=== PATIENT | male | born 1955 | race Caucasian/White ===

== ENCOUNTER 2020-02-16 14:25 | Emergency (ER) | payer MEDICARE ==
[~2020-02-16 14:25] MED LIST: ACYCLOVIR400 MG PO; AMITRIPTYLIN50 MG OR; ASPIRIN 81 LOW81 MG; ELAVIL50 MG OR; EQ OMEPRAZOLE20 MG; MELOXICAM7.5 MG PO; NORTRIPTYLIN25 MG PO; OXYCODONE HCL15 MG PO; OXYCONTIN; OXYCONTIN60 MG PO; PERCOCET1 TA2 OR; PERCOCET1 TA2 PO; PRILOSEC; RESTORIL15 MG PO; RESTORIL30 MG OR; SAW PALMETTO1 CAP PO; VIT B COMPLEX PO
[2020-02-16 16:04] LABS: HEMOGLOBIN 11.7 g/dl (14.0-18.0); IMMATURE GRANULOCYTES 1.2 % (0.0-5.0); MEAN CORPUSCULAR HGB 33.1 pG CALC (26.0-32.0); MEAN CORPUSCULAR HGB CONC 33.4 g/dL CAL (32.0-36.0); NEUT# 3.85 thou/uL (1.82-7.42); RED BLOOD COUNT 3.54 mill/uL (4.70-6.10); RED CELL DISTRI WIDTH 13.3 % (11.5-15.5)
[2020-02-16 16:05] LABS: MEAN CELL VOLUME 98.9 fL CALC (80.0-100.0)
[2020-02-16 16:23] LABS: ALKALINE PHOSPHATASE 81 u/l (38-126); ANION GAP 11 (6-22 (CALC)); BUN 7 mg/dL (8-23); BUN/CREATININE RATIO 10 (12-20 (CALC)); CARBON DIOXIDE 30 mmol/l (22-30); CHLORIDE 99 mmol/l (95-108); CREATININE 0.7 mg/dL (0.7-1.3); GFR > 60 ML/MIN (>=60 (CALC)); GFR FOR AFR.AMER. > 60 ML/MIN (>=60 (CALC)); SGOT/AST 21 u/l (19-48); SODIUM 136 mmol/l (137-146)
[2020-02-16 16:26] LABS: ALBUMIN 3.7 g/dL (3.2-5.0); BILIRUBIN, TOTAL 0.3 mg/dL (0.0-1.4); TOTAL PROTEIN 6.4 g/dL (6.3-8.2)
[2020-02-16] MEDS ORDERED: OXYCONTIN40 MG PO (17:47)
[2020-02-16] MEDS ORDERED: PRILOSEC20 MG/CAP PO (17:48)
[2020-02-16] MEDS ORDERED: OXYCODONE15 MG PO (17:48)
[2020-02-16 18:18] LABS: URINE BILIRUBIN - DIPSTICK NEGATIVE (NEGATIVE); URINE BLOOD DIPSTICK NEGATIVE (NEGATIVE); URINE COLOR YELLOW; URINE GLUCOSE - DIPSTICK NEGATIVE (NEGATIVE); URINE KETONE NEGATIVE (NEGATIVE); URINE LEUK ESTERASE NEGATIVE (NEGATIVE); URINE NITRITE - DIPSTICK NEGATIVE (Negative); URINE PROTEIN - DIPSTICK NEGATIVE (NEG-TRACE); URINE SPECIFIC GRAVITY <=1.005; URINE UROBILINOGEN - DIPSTICK 0.2 E.U./dL (0.2)
[2020-02-16 19:05] VITALS: BP 131/63
[2020-02-16] MEDS ORDERED: NAPROXEN500 MG PO ×2 (19:27)
[2020-03-11] MEDS ORDERED: EQ ASPIRIN ADUL81 MG PO (12:00)
[2020-03-11] MEDS ORDERED: VITAMIN B-12500 MCG PO (12:01)
[2020-03-11] MEDS ORDERED: FISH OIL1000 MG PO (12:01)
[2020-03-11] MEDS ORDERED: FERR SULFATE325 MG PO (12:01)
[2020-03-11] MEDS ORDERED: MULTI VIT PO (12:02)
== END 2020-02-16 19:40 | disposition home or self-care (01) ==
LOC: ED 14:25
PROVIDERS: Student in an Organized Health Care Education/Training Program
DX: K40.90 Unilateral inguinal hernia, without obstruction or gangrene, not specified as recurrent (principal); F17.210 Nicotine dependence, cigarettes, uncomplicated
CPT/HCPCS: Q9967

== ENCOUNTER 2020-04-03 06:15 | Day surgery (SDC) | payer MEDICARE ==
[~2020-04-03] VITALS: Ht 177.8 cm; Wt 68.0 kg
[~2020-04-03 06:15] MED LIST changes: +EQ ASPIRIN ADUL81 MG PO; +FERR SULFATE325 MG PO; +FISH OIL1000 MG PO; +MULTI VIT PO; +NAPROXEN500 MG PO; +OXYCODONE15 MG PO; +OXYCONTIN40 MG PO; +PRILOSEC20 MG/CAP PO; +VITAMIN B-12500 MCG PO
[2020-04-03 11:57] VITALS: BP 120/58
== END 2020-04-03 12:20 | disposition home or self-care (01) ==
LOC: ORM 06:15
PROVIDERS: ATTEND Surgery
PROC: 0YUA4JZ Supplement Bilateral Inguinal Region with Synthetic Substitute, Percutaneous Endoscopic Approach (ICD-10-PCS; principal; 2020-04-03)
PROC: 0VBF4ZZ Excision of Right Spermatic Cord, Percutaneous Endoscopic Approach (ICD-10-PCS; 2020-04-03)
DX: K40.20 Bilateral inguinal hernia, without obstruction or gangrene, not specified as recurrent (principal); D17.6 Benign lipomatous neoplasm of spermatic cord; C85.90 Non-Hodgkin lymphoma, unspecified, unspecified site; F17.210 Nicotine dependence, cigarettes, uncomplicated; Z11.59 Encounter for screening for other viral diseases
CPT/HCPCS: C1781; J0131; J1100; J2710

== ENCOUNTER 2020-04-21 12:46 | Emergency (ER) | payer MEDICARE, MEDICAID ==
[~2020-04-21] VITALS: Ht 177.8 cm; Wt 65.0 kg
[2020-04-21 14:15] LABS: HEMATOCRIT 34.8 % (39.0-50.0); HEMOGLOBIN 11.7 g/dl (14.0-18.0); IMMATURE GRANULOCYTES 5.6 % (0.0-5.0); MEAN CORPUSCULAR HGB 31.9 pG CALC (26.0-32.0); MEAN CORPUSCULAR HGB CONC 33.6 g/dL CAL (32.0-36.0); NEUT# 2.47 thou/uL (1.82-7.42); RED BLOOD COUNT 3.67 mill/uL (4.70-6.10); RED CELL DISTRI WIDTH 13.4 % (11.5-15.5)
[2020-04-21 14:23] LABS: MEAN CELL VOLUME 94.8 fL CALC (80.0-100.0)
[2020-04-21 14:31] LABS: ALKALINE PHOSPHATASE 78 u/l (38-126); BUN 17 mg/dL (8-23); BUN/CREATININE RATIO 22 (12-20 (CALC)); CHLORIDE 98 mmol/l (95-108); CREATININE 0.7 mg/dL (0.7-1.3); GFR > 60 ML/MIN (>=60 (CALC)); GFR FOR AFR.AMER. > 60 ML/MIN (>=60 (CALC)); SODIUM 131 mmol/l (137-146); TOTAL PROTEIN 5.8 g/dL (6.3-8.2)
[2020-04-21 14:33] LABS: D-DIMER 1.46 mg/L (0.19-0.60)
[2020-04-21 14:39] LABS: ALBUMIN 3.2 g/dL (3.2-5.0); ANION GAP 11 (6-22 (CALC)); BILIRUBIN, TOTAL 0.6 mg/dL (0.0-1.4); CARBON DIOXIDE 26 mmol/l (22-30); SGOT/AST 94 u/l (19-48)
[2020-04-21 14:41] LABS: MYOGLOBIN 142 ng/mL (0 - 121)
[2020-04-21 14:42] LABS: ACT PARTIAL THROMBO TIME 35.1 SECONDS (20.0-32.5); PROTHROMBIN TIME 13.3 SECONDS (9.0-12.5)
[2020-04-21 14:51] LABS: INTERNATIONAL NORMALIZED RATIO 1.4 RATIO (0.7-1.3)
[2020-04-21] MEDS ORDERED: SYMBICORT1 AE1 IN ×2 (16:50)
[2020-04-21] MEDS ORDERED: DOXYCYCL HYC100 MG PO ×2 (16:50)
[2020-04-21 16:53] VITALS: BP 124/77
== END 2020-04-21 16:57 | disposition left against medical advice (07) ==
LOC: ED 12:46
PROVIDERS: Family Medicine
DX: J18.9 Pneumonia, unspecified organism (principal); J44.1 Chronic obstructive pulmonary disease with (acute) exacerbation; J44.0 Chronic obstructive pulmonary disease with (acute) lower respiratory infection; R41.0 Disorientation, unspecified; C85.90 Non-Hodgkin lymphoma, unspecified, unspecified site; F17.200 Nicotine dependence, unspecified, uncomplicated; Z91.19 Patient's noncompliance with other medical treatment and regimen; Z20.828 Contact with and (suspected) exposure to other viral communicable diseases
CPT/HCPCS: Q9967

== ENCOUNTER 2020-05-11 16:33 | Inpatient (IN) | payer MEDICARE, MEDICAID ==
[~2020-05-11] VITALS: Ht 177.8 cm; Wt 53.3 kg
[~2020-05-11 16:33] MED LIST changes: +DOXYCYCL HYC100 MG PO; +SYMBICORT1 AE1 IN
--- NOTE | 2020-05-11 16:33 | NUR ---
PATEINT TO ROOM VIA EMS AND PHYSICIAN AT BEDSIDE FOR EVAL
[2020-05-11 17:08] LABS: HEMATOCRIT 37.7 % (39.0-50.0); HEMOGLOBIN 12.3 g/dl (14.0-18.0); MEAN CELL VOLUME 92.4 fL CALC (80.0-100.0); MEAN CORPUSCULAR HGB 30.1 pG CALC (26.0-32.0); MEAN CORPUSCULAR HGB CONC 32.6 g/dL CAL (32.0-36.0); NEUT# 3.83 thou/uL (1.82-7.42); RED BLOOD COUNT 4.08 mill/uL (4.70-6.10); RED CELL DISTRI WIDTH 14.6 % (11.5-15.5)
[2020-05-11] MEDS ORDERED: OXYCODONE15 MG PO (17:15)
[2020-05-11 17:20] LABS: ALBUMIN 2.9 g/dL (3.2-5.0); ALKALINE PHOSPHATASE 89 u/l (38-126); BUN 17 mg/dL (8-23); BUN/CREATININE RATIO 27 (12-20 (CALC)); CHLORIDE 97 mmol/l (95-108); CREATININE 0.6 mg/dL (0.7-1.3); GFR > 60 ML/MIN (>=60 (CALC)); GFR FOR AFR.AMER. > 60 ML/MIN (>=60 (CALC)); SGOT/AST 44 u/l (19-48); SODIUM 134 mmol/l (137-146); TOTAL PROTEIN 5.7 g/dL (6.3-8.2)
--- NOTE | 2020-05-11 17:20 | NUR ---
PT ARRIVES BY EMS AND PRESENTS WITH SOB THAT HAS PROGRESSED IN THE LAST FEW DAYS. HE STATES HAVING INCREASED WEAKNESS. SPO2 81% UPON ARRIVAL WHEN REMOVED FROM O2. PT SKIN APPEARS PALE. MUCUS MEMBRANES DRY. BEEFY RED SMOOTH TONGUE NOTED AND MD NOTIFIED. TENTING OF SKIN. LUNGS DEMINISHED IN THE LOWER LOBES BILATERALLY. AOX4. NIH 0. WILL CONTINUE TO MONITOR. CALL LIGHT WITHIN REACH. PT PLACED ON 4 L OF O2.
[2020-05-11 17:21] LABS: IMMATURE GRANULOCYTES 11.1 % (0.0-5.0)
[2020-05-11 17:22] LABS: ANION GAP 8 (6-22 (CALC)); BILIRUBIN, TOTAL 0.9 mg/dL (0.0-1.4); CARBON DIOXIDE 32 mmol/l (22-30); POTASSIUM 3.1 mmol/l (3.5-5.1)
[2020-05-11 17:32] LABS: MYOGLOBIN 140 ng/mL (0 - 121)
--- NOTE | 2020-05-11 17:56 | NUR ---
ASKED PT IF HE IS ABLE TO PROVIDE URINE SAMPLE. PT DECLINED. URINAL PLACED AT BEDSIDE ALONG WITH CALL LIGHT MD IN ROOM SPEAKING TO PT ABOUT PENDING ADMISSION AND PLAN OF CARE
--- NOTE | 2020-05-11 18:45 | NUR ---
ATTEMPTED TO CALL REPORT AND I WAS TOLD TO WAIT UNTIL NEXT SHIFT NURSE ARRIVES TO GIVE REPORT
--- NOTE | 2020-05-11 19:00 | NUR ---
I ENTERED ROOM I SAW THAT PT HAD DISCONNECTED HIMSELF FROM MONITORING EQUIPMENT, AND HAD GOTTEN OFF OF THE STRETCHER. PT WAS WITNESSED URINATING IN THE SINK. WHEN HE FINISHED, I ASSISTED HIM BACK IN BED AND TOLD HIM THAT HIS URINAL WAS WITHIN REACH ALONG WITH CALL LIGHT. PT SEEMED CONFUSED. NOTIFED. PT RECONNECTED.
--- NOTE | 2020-05-11 19:15 | NUR ---
TELEPHONE REPORT RECEIVED FROM Ted HAQUE IN ED.
--- NOTE | 2020-05-11 19:29 | NUR ---
GAVE REPORT TO MARK
--- NOTE | 2020-05-11 19:38 | NUR ---
PT ARRIVES TO UNIT VIA STRETCHER, ACCOMPANIED Ted HAQUE RN. ADMITTED TO ROOM 282.
--- NOTE | 2020-05-11 19:40 | NUR ---
PT TRANSFERED TO [facility] STABLE AND IN NO DISTRESS. CARE ASSUMED TO MARK Admission Note Report Given to: MARK Transported by: Wheelchair X Stretcher Transported with: X Nurse Transporter X Patent IV X O2 X Auto Parker Location: ICU X MS2
[2020-05-11 19:45] VITALS: BP 114/84
--- NOTE | 2020-05-11 19:47 | NUR ---
LACTATE LEVEL 2.6mmol/L, RESULT CALLED BY Batool WALTER MLS.
--- NOTE | 2020-05-11 20:08 | NUR ---
LACTATE LEVEL REPORTED TO DR. MARSHALL, ORDER TO BOLUS ADDITIONAL 1L NS AND REPEAT LACTIC ACID RECEIVED.
--- NOTE | 2020-05-11 20:15 | NUR ---
ASMISSION ASSESMENT COMPLETE. PT LAYING IN BED. RESPIRATIONS REGULAR AND UNLABORED. NO APPARENT DISTRESS. SEE E-MAR FOR ADMINISTRATION OF SCHEDULED AND PRN MEDICATION(S) AND INITIATION OF 1 LITER NS BOLUS. PLAN OF CARE REVIEWED, PT VERBALIZES UNDERSTANDING AND DENIES QUESTIONS. PT IS ABLE TO MAKE NEEDS KNOWN, DENIES NEEDS AT THIS TIME. CALL DANIEL WITHIN REACH, AGREES TO CALL PRN.
--- NOTE | 2020-05-11 23:42 | NUR ---
REPEAT LACTIC ACID DRAWN. PT URINATED ON BED AND FLOOR. STATES "I COULDN'T MAKE IT TO THE BATHROOM". URINAL AT BEDSIDE, WITHIN REACH. PT ASSISTED TO BATHE AND LINENS CHANGED BY Isi MARCIAL CNA.
[2020-05-12] VITALS: BP 114/73
--- NOTE | 2020-05-12 00:20 | NUR ---
REPEAT LACTIC ACID 0.9mmol/L, WNL, NO FURTHER INTERVENTION NEEDED AT THIS TIME.
--- NOTE | 2020-05-12 00:40 | NUR ---
PT LAYING IN BED, APPEARS TO BE SLEEPING COMFORTABLY, NO APPARENT DISTRESS, RESPIRATIONS REGULAR AND UNLABORED. CALL DANIEL REMAINS WITHIN REACH.
[2020-05-12 04:00] VITALS: BP 110/67
--- NOTE | 2020-05-12 07:40 | NUR ---
RECIEVED REPORT FROM MORIAH FLORES. PT CALLS FOR ASSIST WITH CHANGING. UPON ENERTING ROOM. PT WAS FOUND SAOILED. PT STATED "I DIDNT MAKE IT AND PEED ON MYSELF."WAQAS SIMPSON ASSISTING PT WITH SHOWER.ALL SAEFTY PRECAUTIONS ARE IN PLACE WITH CALL LIGHT IN REACH. WILL CONTINUE TO MONITOR
--- NOTE | 2020-05-12 07:51 | NUR ---
PT note Patient is screened for PT intervention and he has no needs at this time
--- NOTE | 2020-05-12 08:10 | NUR ---
PT RESTING IN SEMI FOWLERS POSITION UPON ENTERING ROOM.INTRODUCED SELF TO PT AND DISCUSSED POC. ASSESSMENT AND VITALS COMPLETED. RESPIRATIONS ARE EVEN AND UNLABORED ON 4L NC SATING 93%. LUNG SOUNDS ARE DIMINISHED, PT DENIES ANY SOB. HEART RHYTHM IS NORMAL WITH TELE IN PLACE. BOWEL SOUNDS ARE ACTIVE IN ALL QUADRANTS WITH NO TENDERNESS, LAST REPORTED BM 05/11/20. RADIAL AND PEDAL PULSES ARE STRONG WITH NORMAL CAPILLARY REFILL. #20 RFA EMS SITE FLUSHED, SITE APPEARS HEALTHY AND PATENT. #20 IN LAC RUNNING NS PER ORDER, SITE APPEARS HEALTHY AND PATENT.PT COMPLAINS OF 6/10 PAIN IN BACK AND NECK, PAIN MEDICATION TO BE ADMINISTERED. SKIN IS COOL AND DRY WITH NO BREAKDOWN. PT ORIENTED TO ROOM AND CALL LIGHT. RE-EDUCATED PT CULINARY WORKER LIGHT AND ENCOURAGED PT TO CALL FOR ASSISTANCE WITH URINAL FOR NEEDED URINE SPECIMEN. PT VERBAILZED UNDERSTANDING. ALL SAFETY PRECAUTIONS ARE IN PLACE WITH CALL LIGHT IN REACH. WILL CONTINUE TO MONITOR.
[2020-05-12 08:12] VITALS: BP 142/74
[2020-05-12 09:18] LABS: HEMATOCRIT 37.3 % (39.0-50.0); HEMOGLOBIN 12.3 g/dl (14.0-18.0); MEAN CELL VOLUME 92.6 fL CALC (80.0-100.0); MEAN CORPUSCULAR HGB 30.5 pG CALC (26.0-32.0); NEUT# 2.96 thou/uL (1.82-7.42); RED BLOOD COUNT 4.03 mill/uL (4.70-6.10); RED CELL DISTRI WIDTH 14.7 % (11.5-15.5)
[2020-05-12 09:24] LABS: IMMATURE GRANULOCYTES 13.5 % (0.0-5.0)
--- NOTE | 2020-05-12 09:57 | NUR ---
TYLENOL ADMINISTERED TO ASSIST WITH NECK AND BACK PAIN RESULTING IN 6/10. RESPIRATIONS ARE EVEN AND UNLABORED WITH NO SIGNS OF DISTRESS. ALL SAFETY PRECAUTIONS ARE IN PLACE WITH CALL LIGHT IN REACH. WILL CONTINUE TO MONITOR
[2020-05-12 10:05] LABS: C-REACTIVE PROTEIN 7.9 mg/dL (0-0.9)
[2020-05-12 10:12] LABS: ALBUMIN 2.4 g/dL (3.2-5.0); ALKALINE PHOSPHATASE 79 u/l (38-126); ANION GAP 10 (6-22 (CALC)); BILIRUBIN, TOTAL 0.7 mg/dL (0.0-1.4); BUN 12 mg/dL (8-23); BUN/CREATININE RATIO 23 (12-20 (CALC)); CARBON DIOXIDE 26 mmol/l (22-30); CHLORIDE 103 mmol/l (95-108); CREATININE 0.6 mg/dL (0.7-1.3); GFR > 60 ML/MIN (>=60 (CALC)); GFR FOR AFR.AMER. > 60 ML/MIN (>=60 (CALC)); MAGNESIUM 1.7 mg/dL (1.6-2.3); POTASSIUM 2.7 mmol/l (3.5-5.1); SGOT/AST 39 u/l (19-48); SODIUM 136 mmol/l (137-146); TOTAL PROTEIN 4.8 g/dL (6.3-8.2)
[2020-05-12 11:09] VITALS: BP 115/75
--- NOTE | 2020-05-12 11:40 | NUR ---
ATTEMPTED TO RETURN PHONE CALL FROM RADIOLOGY, NO ANSWER.
--- NOTE | 2020-05-12 12:03 | NUR ---
REASSESSMENT OF PAIN AT THIS TIME. RESULTING IN 12/20. PT STATES THAT TYLENOL IS HELPING. RESPRIATIONS ARE EVEN AND UNLABORED. IV FLUIDS RUNNING PER ORDER.PT DENIES OF ANY OTHER DISCOMFORTS OR NEEDS. ALL SAFETY PRECAUTIONS ARE IN PLACE. WILL CONTINUE TO MONITOR
[2020-05-12 12:07] LABS: URINE BILIRUBIN - DIPSTICK NEGATIVE (NEGATIVE); URINE BLOOD DIPSTICK NEGATIVE (NEGATIVE); URINE CLARITY CLEAR; URINE COLOR YELLOW; URINE GLUCOSE - DIPSTICK NEGATIVE (NEGATIVE); URINE KETONE NEGATIVE (NEGATIVE); URINE LEUK ESTERASE NEGATIVE (Negative); URINE NITRITE - DIPSTICK NEGATIVE (Negative); URINE PH 6.5 (4.5-8.0); URINE PROTEIN - DIPSTICK NEGATIVE (NEG-TRACE); URINE UROBILINOGEN - DIPSTICK 0.2 E.U./dL (0.2)
--- NOTE | 2020-05-12 13:50 | NUR ---
PT TRANSPORTED TO RADIOLOGY FOR CHEST X RAY VIA WHEELCHAIR IN STABEL CONDITION ACCOMPAINED BY WAQAS VARELA.
--- NOTE | 2020-05-12 13:58 | NUR ---
PT ARRIVED BACK TO [facility] ROOM 282 IN STABLE CONDITION VIA WHEELCHAIR ACCOMPAINED BY WAQAS VARELA.
[2020-05-12] MEDS ORDERED: SYMBICORT1 AE1 IN (14:18)
[2020-05-12 15:31] VITALS: BP 121/80
[2020-05-12] MEDS ORDERED: OXYCODONE HCL E40 MG PO (15:54)
--- NOTE | 2020-05-12 16:04 | NUR ---
PT RESTING IN SEMI FOWLERS POSITION UPON ENTERING ROOM. RESPIRATIONS ARE EVEN AND UNLABORED ON 3L NC. NO SIGNS OF DISTRESS NOTED. PT DENIES ANY PAIN OR DISCOMFORTS . IV FLUIDS RUNNING PER ORDER. ALL SAFETY PRECAUTIONS ARE IN PLACE WITH CALL LIGHT IN REACH. WILL CONTINUE TO MONITOR.
--- NOTE | 2020-05-12 19:05 | NUR ---
REPORT FROM LIT GARDNER. PT NOTED SITTING UP IN BED. NO APPARENT DISTRESS NOTED. ALERT AND ORIENTED. PT DENIES ANY PAIN OR DISCOMFORT AT THIS TIME. 02 @ 3L/M VIA NC. IV FLUIDS INFUSING WITHOUT DIFFICULTY. IV SITE APPEARS HEALTHY. MERCHANDISE FLOW TEAM LEADER IN PLACE. DISCUSSED POC AND SAFETY PRECAUTIONS. PT VERBALIZED UNDERSTANDING. NO CURRENT WANTS OR NEEDS. CALL LIGHT WITHIN REACH. WILL CONTINUE TO MONITOR.
[2020-05-12 20:05] VITALS: BP 133/75
--- NOTE | 2020-05-12 21:40 | NUR ---
PT MEDICATED ORDERED. PT C/O GENERALIZED PAIN 10/10 AT THIS TIME. ENCOURAGED REPOSITIONING IN BED, PT DID SO AT THIS TIME WITHOUT ASSISTANCE. PT DENIES ANY OTHER CURRENT WANTS OR NEEDS. CALL LIGHT WITHIN REACH. WILL CONTINUE TO MONITOR.
[2020-05-13] VITALS (7 sets, daily range): BP systolic 119–131; BP diastolic 70–79
--- NOTE | 2020-05-13 01:53 | NUR ---
PT RESTING IN BED. NO APPARENT DISTRESS NOTED. RESPIRATIONS EVEN AND UNLABORED. CALL LIGHT WITHIN REACH. WILL CONTINUE TO MONITOR.
[2020-05-13 05:14] LABS: HEMATOCRIT 33.5 % (39.0-50.0); HEMOGLOBIN 10.9 g/dl (14.0-18.0); MEAN CELL VOLUME 93.3 fL CALC (80.0-100.0); MEAN CORPUSCULAR HGB 30.4 pG CALC (26.0-32.0); MEAN CORPUSCULAR HGB CONC 32.5 g/dL CAL (32.0-36.0); NEUT# 4.89 thou/uL (1.82-7.42); RED BLOOD COUNT 3.59 mill/uL (4.70-6.10); RED CELL DISTRI WIDTH 14.7 % (11.5-15.5)
[2020-05-13 05:32] LABS: ALBUMIN 2.3 g/dL (3.2-5.0); ALKALINE PHOSPHATASE 61 u/l (38-126); ANION GAP 6 (6-22 (CALC)); BILIRUBIN, TOTAL 0.6 mg/dL (0.0-1.4); BUN 15 mg/dL (8-23); BUN/CREATININE RATIO 26 (12-20 (CALC)); CARBON DIOXIDE 28 mmol/l (22-30); CHLORIDE 104 mmol/l (95-108); CREATININE 0.6 mg/dL (0.7-1.3); GFR > 60 ML/MIN (>=60 (CALC)); GFR FOR AFR.AMER. > 60 ML/MIN (>=60 (CALC)); MAGNESIUM 1.9 mg/dL (1.6-2.3); SGOT/AST 36 u/l (19-48); SODIUM 134 mmol/l (137-146); TOTAL PROTEIN 4.5 g/dL (6.3-8.2)
[2020-05-13 05:34] LABS: POTASSIUM 3.9 mmol/l (3.5-5.1)
--- NOTE | 2020-05-13 05:58 | NUR ---
PT RESTING IN BED WATCHING TV. NO APPARENT DISTRESS NOTED. RESPIRATIONS EVEN AND UNLABORED. PT ASKING IF PHYSICIAN WAS GOING TO SEE HIM TODAY AND WANTING TO KNOW WHEN HE COULD GET OUT OF HERE. DISCUSSED POC AND NEED FOR IV ABT. PT REFUSING EDUCATION PROVIDED. PT PLEASANT AT THIS TIME, NO AGGITATION NOTED. PT DENIES ANY OTHER WANTS OR NEEDS. CALL LIGHT WITHIN REACH. WILL CONTINUE TO MONITOR.
--- NOTE | 2020-05-13 07:00 | NUR ---
REPORT RECEIVED FROM KENDRA REDDY.
--- NOTE | 2020-05-13 08:35 | NUR ---
AT BEDSIDE DISCUSSING POC.
--- NOTE | 2020-05-13 09:00 | NUR ---
PT RESTING IN SEMI FOWLERS POSITION,A&O X3;VS OBTAINED AND ASSESSMENT COMPLETED;PT REPORTS NECK PAIN RATING 6/10 ON THE PAIN SCALE,PAIN SCALE AND REPORTING EDUCATED;PT MEDICATED WITH SCHEDULED OXYCODONE 40MG PO;RESPIRATIONS EVEN AND UNLABORED ON O2 @ 2L VIA NC;ABDOMEN SOFT ON PALPATION AND ACTIVE IN ALL 4 QUADRANTS;STRONG PEDAL PULSES;SKIN INTACT;TELE MONITORING IN PLACE;#20G TO LAC INFUSING NS @ 20ML/HR,SITE APPEARS HEALTHY;PT REMAINS IN AIR/CONTACT PRECAUTIONS DUE TO PENDING COVID 19 RESULTS;PT DENIES ANY ADDITIONAL NEEDS AT THIS TIME AND IS ENCOURAGED TO CALL FOR ASSISTANCE IF NEEDED;CALL LIGHT IN REACH;WILL CONTINUE TO MONITOR
[2020-05-13] MEDS ORDERED: LEVAQUIN750 MG PO (10:12)
[2020-05-13] MEDS ORDERED: PREDNISONE10 MG PO (10:18)
[2020-05-13] MEDS ORDERED: PROAIR HFA108 MCG/AC IN (10:20)
--- NOTE | 2020-05-13 10:20 | NUR ---
OXYGEN QUALIFICATION TEST OBTAINED AT THIS TIME;WITHOUT OXYGEN PRIOR TO AMBULATION PT O2 SATS 85%, O2 RE-APPLIED @ 3L VIA NC AND O2 SATS EVELIN WITH AMBULATION TO 91%, RESTING 02 SATS ON O2 @ 3L VIA NC 92%;PT RE-POSITIONED INTO BED;TELE MONITORING IN PLACE AND IV SITE PATENT;PT VERBALIZES UNDERSTANDING ON QUALIFICATION FOR HOME OXYGEN, ALYSSA MCDERMOTTRP AND CASE MANAGEMENT NOTIFIED;PT DENIES ANY ADDITIONAL NEEDS;ENCOURAGED TO CALL FOR ASSISTANCE IF NEEDED;CALL LIGHT IN REACH;WILL CONTINUE TO MONITOR
[2020-05-13] MEDS ORDERED: ZITHROMAX250 MG PO (11:30)
--- NOTE | 2020-05-13 12:00 | NUR ---
PT RESTING IN SEMI FOWLERS POSITION EATING LUNCH;RESPIRATIONS SHALLOW ON O2 @ 3L VIA NC, O2 SATS @ 91%;PT DENIES ANY CURRENT PAIN OR NEEDS;TELE MONITORING IN PLACE;IV SITE PATENT AND IV ABX STARTED AT THIS TIME;PT VERBALIZES UNDERSTANDING ON COVID19 DX AND HOW MD WOULD LIKE HIM TO SPEND AN ADDITIONAL NIGHT AT [facility] FOR FURTHER ABX AND CARE, PT REPORTS THAT HE WOULD LIKE TO GO HOME AND WOULD SIGN AMA;PT EDUCATED ON ALL RISKS IN REGARDS TO SIGNING AMA INCLUDING AND VERBALIZES UNDERSTANDING;PENNIE (DAUGHTER) CALLED AND UPDATED ON POC WITH PT PERMISSION (PASSCODE WAS PROVIDED BY DAUGHTER) SINCE PENNIE WILL BE CAREGIVER AT HOME AND PT RIDE HOME AT TIME OF DISCHARGE;PT DENIES ANY ADDITIONAL NEEDS AT THIS TIME;ENCOURAGED TO CALL FOR ASSISTANCE IF NEEDED;CALL LIGHT IN REACH;WILL CONTINUE TO MONITOR
--- NOTE | 2020-05-13 15:20 | NUR ---
PT RESTING IN SEMI FOWLERS POSITION;RESPIRATIONS SHALLOW ON O2 @ 3L VIA NC, O2 SATS @ 85% ON 3L;PT PLACED IN PRONE POSITION AND O2 INCREASED TO 4.5L VIA NC;O2 SATS CURRENTLY 90% ON 4.5L;PT DENIES ANY CURRENT PAIN OR DISCOMFORTS;TELE MONITORING IN PLACE;IV SITE REMAINS PATENT INFUSING NS PER ORDER;PT DENIES ANY ADDITIONAL NEEDS AT THIS TIME;ALYSSA ANRP NOTIFIED OF INCREASE IN OXYGEN,NO NEW ORDERS RECEIVED;ENCOURAGED PT TO CALL FOR ASSISTANCE IF NEEDED;CALL LIGHT IN REACH;WILL CONTINUE TO MONITOR
--- NOTE | 2020-05-13 20:08 | NUR ---
PT RESTING IN BED ALERT AND ORIENTED TO PERSON AND PLACE. RESPIRATIONS SHALLOW ON O2 @ 4.5L, LUNGS SOUND DIMINISHED, O2 SAT DROPPING INTO THE 80S. MD TO BE NOTIFIED.
--- NOTE | 2020-05-13 20:38 | NUR ---
DR. SEGURA NOTIFIED OF PT O2 SATS, PT TO BE TRANSFERED OVER TO ICU. MARK RN CALL FOR A BED, PT GOING OT BED 8.
--- NOTE | 2020-05-13 20:59 | NUR ---
PT TRANSFERED TO ICU
--- NOTE | 2020-05-13 21:03 | NUR ---
PT ARRIVES TO UNIT VIA BED, ACCOMPANIED BY Marta AGUILAR RN, PT TRANSFERRED INTO ICU #8. SPO2 95% 0N 02 @ 6L/NC. PT SWITCHED TO HIGH FLOW NC @ 6L/MIN HUMIDIFIED.
--- NOTE | 2020-05-13 21:40 | NUR ---
PHYSICAL ASSESMENT COMPLETE. PT SITTING UP IN BED, WATCHING TV. RESPIRATIONS REGULAR AND UNLABORED. NO APPARENT DISTRESS. SEE E-MAR FOR ADMINISTRATION OF SCHEDULED AND PRN MEDICATION(S). PLAN OF CARE REVIEWED, PT VERBALIZES UNDERSTANDING AND DENIES QUESTIONS. PT IS ABLE TO MAKE NEEDS KNOWN, DENIES NEEDS AT THIS TIME. CALL DANIEL WITHIN REACH, AGREES TO CALL PRN.
--- NOTE | 2020-05-13 23:04 | NUR ---
PT ASSISTED UP TO BSC BY Isi MARCIAL CNA PER HIS REQUEST. PT REPORTS HE NEEDS TO HAVE A BM. SPO2 DOWN TO 86% WITH EXERTION. PT DID NOT HAVE BM. PT ASSITED BACK TO BED BY Isi MACRIAL CNA. PT TOOK SEVERAL MINUTES FOR SPO2 TO RETURN TO AT LEAST 90% SPO2.
[2020-05-14] VITALS (8 sets, daily range): BP systolic 94–132; BP diastolic 47–78
--- NOTE | 2020-05-14 00:37 | NUR ---
PT APPEARS TO BE SLEEPING COMFORTABLY, NO APPARENT DISTRESS, RESPIRATIONS REGULAR AND UNALBORED, SPO2 94%. CALL DANIEL REMAINS WITHIN REACH.
--- NOTE | 2020-05-14 08:30 | NUR ---
PT SEEN AWAKE, ALERT, ORIENTED X 3. LUNGS ARE CLEAR BUT DIMINISHED SIGNIFICANTLY, USING 6 LPM NC. PT SEEN BY DR SEGURA TODAY, INSISTS ON DISCHARGE TO HOME TODAY. ATTEMPTS MADE TO EXPLAIN WORSENING OF SYMPTOMS, BUT PT DOES NOT FEEL SHORT OF BREATH AND BELIEVES THAT DOCTOR IS TRYING TO CHANGE WHAT HE SAID YESTERDAY. DAUGHTER PENNIE WAS CALLED, SHE SAYS THAT DAD IS STUBBORN, COULD NOT BE CONVINCED TO STAY ANOTHER NIGHT, SHE WILL BE HERE AROUND 5 PM TO PICK HIM UP. PT ASSISTED TO BSC, DESATS INTO THE 70s AND RECOVERS OVER THE NEXT FEW MINUTES.
[2020-05-14 08:40] LABS: HEMATOCRIT 32.1 % (39.0-50.0); HEMOGLOBIN 10.3 g/dl (14.0-18.0); MEAN CELL VOLUME 94.1 fL CALC (80.0-100.0); MEAN CORPUSCULAR HGB 30.2 pG CALC (26.0-32.0); MEAN CORPUSCULAR HGB CONC 32.1 g/dL CAL (32.0-36.0); NEUT# 4.68 thou/uL (1.82-7.42); RED BLOOD COUNT 3.41 mill/uL (4.70-6.10)
[2020-05-14 08:43] LABS: IMMATURE GRANULOCYTES 8.5 % (0.0-5.0)
[2020-05-14 08:52] LABS: ALBUMIN 2.3 g/dL (3.2-5.0); ALKALINE PHOSPHATASE 64 u/l (38-126); ANION GAP 6 (6-22 (CALC)); BILIRUBIN, TOTAL 0.4 mg/dL (0.0-1.4); BUN 14 mg/dL (8-23); BUN/CREATININE RATIO 25 (12-20 (CALC)); C-REACTIVE PROTEIN 3.1 mg/dL (0-0.9); CARBON DIOXIDE 27 mmol/l (22-30); CHLORIDE 104 mmol/l (95-108); CREATININE 0.6 mg/dL (0.7-1.3); GFR > 60 ML/MIN (>=60 (CALC)); GFR FOR AFR.AMER. > 60 ML/MIN (>=60 (CALC)); POTASSIUM 3.7 mmol/l (3.5-5.1); SGOT/AST 31 u/l (19-48); SODIUM 133 mmol/l (137-146); TOTAL PROTEIN 4.4 g/dL (6.3-8.2)
--- NOTE | 2020-05-14 12:34 | NUR ---
PT REMAINS BEFORE, AT REST IN THE BED. NO CHANGE IN STATUS OR HIS PLAN FOR DISCHARGE LATER TODAY AMA. PT'S BROTHER CALLED FOR AN UPDATE AND WAS PROVIDED SAME.
[2020-05-14] MEDS ORDERED: DEXAMETHASON6 MG PO (12:40)
--- NOTE | 2020-05-14 16:29 | NUR ---
PT HAS SPOKEN WITH DAUGHTER PENNIE, WHO WILL BE PICKING UP PT WITHIN THE [place]. PT COULD NOT BE CONVINCED TO STAY FOR FURTHER TREATMENT, HAS SIGNED AMA FORM. PT VERBALIZED UNDERSTANDING OF DC INSTRUCTIONS, WILL BE TAKEN TO VEHICLE IN WHEELCHAIR. PT REMAINS STABLE FOR NOW, STATES THAT HE WILL RETURN TO HOSPITAL IF SYMPTOMS WORSEN.
[2020-05-15] MEDS ORDERED: ACYCLOVIR400 MG PO (13:24)
[2020-05-15] MEDS ORDERED: MELOXICAM7.5 MG PO (13:24)
[2020-05-15] MEDS ORDERED: OMEPRAZOLE20 MG PO (13:24)
[2020-05-15] MEDS ORDERED: NORTRIPTYLIN25 MG PO (13:25)
[2020-05-15] MEDS ORDERED: OXYCONTIN40 MG PO (13:26)
== END 2020-05-14 16:15 | disposition left against medical advice (07) | DRG 177 ==
LOC: ED 16:33 → ED-I 16:53 → ED 16:53 → ED-I 17:45 → ED 18:03 → MS2 18:04 → ICU 05-13 20:46
PROVIDERS: Emergency Medicine; Nurse Practitioner; ADMIT Internal Medicine; ATTEND Internal Medicine
DX: U07.1 COVID-19 (principal); J12.89 Other viral pneumonia; J96.91 Respiratory failure, unspecified with hypoxia; J44.1 Chronic obstructive pulmonary disease with (acute) exacerbation; J44.0 Chronic obstructive pulmonary disease with (acute) lower respiratory infection; C85.90 Non-Hodgkin lymphoma, unspecified, unspecified site; E87.2 Acidosis; E87.6 Hypokalemia; G89.4 Chronic pain syndrome; F17.200 Nicotine dependence, unspecified, uncomplicated
CPT/HCPCS: J1650; Q9967

== ENCOUNTER 2020-05-15 12:58 | Inpatient (IN) | payer MEDICARE ==
[~2020-05-15] VITALS: Ht 177.8 cm; Wt 59.1 kg
[~2020-05-15 12:58] MED LIST changes: +DEXAMETHASON6 MG PO; +LEVAQUIN750 MG PO; +OXYCODONE HCL E40 MG PO; +PREDNISONE10 MG PO; +PROAIR HFA108 MCG/AC IN; +ZITHROMAX250 MG PO
--- NOTE | 2020-05-15 13:20 | NUR ---
PT ARRIVES VIA EMS IN NO APPARENT DISTRESS, O2 SAT 82% ON O2@2LPM VIA NC. PT CHANGED TO NRB AND O2 SAT INCREASED TO 97%. PT ALERT AND ORIENTED TO SELF AND PLACE ONLY.
[2020-05-15] MEDS ORDERED: OMEPRAZOLE20 MG PO (13:24)
[2020-05-15] MEDS ORDERED: MELOXICAM7.5 MG PO (13:24)
[2020-05-15] MEDS ORDERED: ACYCLOVIR400 MG PO (13:24)
[2020-05-15] MEDS ORDERED: NORTRIPTYLIN25 MG PO (13:25)
[2020-05-15] MEDS ORDERED: OXYCONTIN40 MG PO (13:26)
[2020-05-15 13:45] LABS: URINE BILIRUBIN - DIPSTICK NEGATIVE (NEGATIVE); URINE BLOOD DIPSTICK NEGATIVE (NEGATIVE); URINE COLOR YELLOW; URINE GLUCOSE - DIPSTICK NEGATIVE (NEGATIVE); URINE KETONE NEGATIVE (NEGATIVE); URINE LEUK ESTERASE NEGATIVE (NEGATIVE); URINE NITRITE - DIPSTICK NEGATIVE (Negative); URINE PH 7.5 (4.5-8.0); URINE PROTEIN - DIPSTICK NEGATIVE (NEG-TRACE); URINE UROBILINOGEN - DIPSTICK 0.2 E.U./dL (0.2)
[2020-05-15 13:46] LABS: HEMATOCRIT 32.9 % (39.0-50.0); HEMOGLOBIN 10.8 g/dl (14.0-18.0); MEAN CELL VOLUME 91.9 fL CALC (80.0-100.0); MEAN CORPUSCULAR HGB 30.2 pG CALC (26.0-32.0); MEAN CORPUSCULAR HGB CONC 32.8 g/dL CAL (32.0-36.0); NEUT# 6.23 thou/uL (1.82-7.42); RED BLOOD COUNT 3.58 mill/uL (4.70-6.10); RED CELL DISTRI WIDTH 14.8 % (11.5-15.5)
[2020-05-15 14:07] LABS: ALBUMIN 2.7 g/dL (3.2-5.0); ALKALINE PHOSPHATASE 82 u/l (38-126); ANION GAP 7 (6-22 (CALC)); BUN 10 mg/dL (8-23); BUN/CREATININE RATIO 16 (12-20 (CALC)); CARBON DIOXIDE 31 mmol/l (22-30); CHLORIDE 95 mmol/l (95-108); CREATININE 0.6 mg/dL (0.7-1.3); GFR > 60 ML/MIN (>=60 (CALC)); GFR FOR AFR.AMER. > 60 ML/MIN (>=60 (CALC)); POTASSIUM 3.2 mmol/l (3.5-5.1); SGOT/AST 42 u/l (19-48); SODIUM 129 mmol/l (137-146)
[2020-05-15 14:08] LABS: ACT PARTIAL THROMBO TIME 27.4 SECONDS (20.0-32.5); INTERNATIONAL NORMALIZED RATIO 1.5 RATIO (0.7-1.3); PROTHROMBIN TIME 14.2 SECONDS (9.0-12.5)
[2020-05-15 14:12] LABS: BILIRUBIN, TOTAL 0.9 mg/dL (0.0-1.4)
--- NOTE | 2020-05-15 14:30 | NUR ---
PT SEMIFOWLERS IN BED. IV MEDS INFUSING WITHOUT COMPLICATIONS. VITALS STABLE ON MONITOR. NO SIGNS OF DISTRESS. PT CALM AND COOPEATIVE. CALL LIGHT WITHIN REACH.
--- NOTE | 2020-05-15 15:07 | NUR ---
IGG & IGM NOT DONE DUE TO RECENT POSITIVE SWABS DONE THIS WEEK AT [facility].
--- NOTE | 2020-05-15 15:26 | NUR ---
CHANGED PT FROM NRB TO O2 @6LPM VIA WV. PT ALERT AND ORIENTED X3. NO DISTRESS. O2 SATS ONLY MAINTIANING 90%, EDP UPDATED AND BIPAP ORDERED
--- NOTE | 2020-05-15 16:32 | NUR ---
PT RESTING COMFORTABLY IN BED. NO SIGNS OF DISTRESS NOTED. IV MEDS INFUSING.
--- NOTE | 2020-05-15 17:45 | NUR ---
PT CONSUMED DINNER AT BEDSIDE. IV MEDS CONTINUE TO INFUSE. VITALS REMAIN STABLE. CALL LIGHT WITHIN REACH. BED IN LOW POSITION.
--- NOTE | 2020-05-15 18:56 | NUR ---
report called to icu
--- NOTE | 2020-05-15 19:25 | NUR ---
instructed pt about sleeping in the prone position. pt prefers not to @ present.
--- NOTE | 2020-05-15 19:25 | NUR ---
65 yr old white male admitted to icu1 per stretcher from er. transferred self to bed. bed weight obtained. pt very thin & emaciated. pt said he lost 60 lbs in 6 months. o2 cont 10 l/m per nc. no resp diff. vehicle monitor technician shows sinus rhythm hr 82. #20 lac. ivf cont from er then will decreased rate to 75cchr. history obtained per pt, er & old record. oriented to room. air/contact precautions initiated.
[2020-05-15 19:30] VITALS: BP 101/69
[2020-05-15 19:45] VITALS: BP 110/62
[2020-05-15 20:00] VITALS: BP 107/63
[2020-05-15 20:15] VITALS: BP 101/59
[2020-05-15 20:30] VITALS: BP 99/58
[2020-05-15 22:00] VITALS: BP 97/59
--- NOTE | 2020-05-15 22:00 | NUR ---
eyes closed. no resp diff. log haul operator shows sinus rhythm pacs pvcs hr 76.
[2020-05-16] VITALS (17 sets, daily range): BP systolic 102–132; BP diastolic 54–79
--- NOTE | 2020-05-16 00:01 | NUR ---
awake. denies distress. spoke to pt again about prone position but doesn't want to. o2 cont.
--- NOTE | 2020-05-16 02:00 | NUR ---
resting quietly. resps even & unlabored. no apparent distress.
--- NOTE | 2020-05-16 04:00 | NUR ---
eyes closed. no distress. cardiac momitor shows sinus rhythm pacs pvcs hr 60.
[2020-05-16 04:43] LABS: HEMATOCRIT 30.3 % (39.0-50.0); HEMOGLOBIN 9.8 g/dl (14.0-18.0); MEAN CELL VOLUME 92.4 fL CALC (80.0-100.0); MEAN CORPUSCULAR HGB 29.9 pG CALC (26.0-32.0); MEAN CORPUSCULAR HGB CONC 32.3 g/dL CAL (32.0-36.0); PLATELET COUNT 106 thou/uL (130-400); RED BLOOD COUNT 3.28 mill/uL (4.70-6.10); RED CELL DISTRI WIDTH 15.1 % (11.5-15.5)
[2020-05-16 04:59] LABS: ALKALINE PHOSPHATASE 69 u/l (38-126); BILIRUBIN, TOTAL 0.6 mg/dL (0.0-1.4); BUN 10 mg/dL (8-23); BUN/CREATININE RATIO 18 (12-20 (CALC)); CARBON DIOXIDE 30 mmol/l (22-30); CHLORIDE 100 mmol/l (95-108); CREATININE 0.6 mg/dL (0.7-1.3); GFR > 60 ML/MIN (>=60 (CALC)); GFR FOR AFR.AMER. > 60 ML/MIN (>=60 (CALC)); SGOT/AST 34 u/l (19-48); SODIUM 131 mmol/l (137-146); TOTAL PROTEIN 4.1 g/dL (6.3-8.2)
[2020-05-16 05:00] LABS: ALBUMIN 2.1 g/dL (3.2-5.0); ANION GAP 5 (6-22 (CALC)); POTASSIUM 3.9 mmol/l (3.5-5.1)
[2020-05-16 05:06] LABS: IMMATURE GRANULOCYTES 7.5 % (0.0-5.0)
[2020-05-16 05:07] LABS: ANISOCYTOSIS FEW; HYPOCHROMIA FEW; MANUAL DIFFERENTIAL YES; OVALOCYTES FEW
[2020-05-16 05:08] LABS: ACANTHOCYTES FEW; PLATELET ESTIMATE MOD DECREASE
[2020-05-16 05:10] LABS: C-REACTIVE PROTEIN 15.8 mg/dL (0-0.9)
--- NOTE | 2020-05-16 06:00 | NUR ---
no resp diff this shift. o2 cont. voided well per urinal.
--- NOTE | 2020-05-16 07:20 | NUR ---
ASSESSMENT IS COMPLETD: IV SITE IS FREE FROM REDNESS OR EDEMA. HR IS REG,PULSES ARE STRONG X4, ABD IS SOFT WITH ACTIVE BS BREATH SOUNDS ARE CLEAR AND DIMINISHED. O2 @ 10 LITRES WITH NC. HRT MONITOR IN PLACE/
--- NOTE | 2020-05-16 07:50 | NUR ---
SPOKE WITH PT DAUGHTER THIS AM. INQUIRED HOW HE WAS. AND HOW LONG HE WOULD BE HERE.
--- NOTE | 2020-05-16 08:36 | NUR ---
SISTER FROM [place] CALLED AND SPOKE WITH PT.
--- NOTE | 2020-05-16 09:00 | NUR ---
DR SEGURA AND SCOOBY ARPN IN TO VISIT WITH PT.
--- NOTE | 2020-05-16 09:25 | NUR ---
S: MAGDALENA NG is a 65 M who presents with Pneumonia due to COVID-19. He has a history of non-Hodgkin's lymphoma, COPD, and chronic pain syndrome. All medications in patient's chart were reviewed. O: VS: BP 117/54 mmHg, P 68 bpm, RR 15 breaths/minute, T 97 F W 54.459 kg, HT 177.8 cm, Scr= 1 mg/dL, CrCl= 130 ml/min A: Blood culture is pending. P: Patient is on Zosyn 4.5g IV q6h. Vancomycin ordered for pharmacy to dose. Start Vancomycin 1,250 mg IV Q12H. Vancomycin trough is drawn before the 4th dose on 05/17/2020 @ 1330. Vancomycin goal trough is between 15-20 mcg/ml. Pharmacy will follow and or advise on antibiotics use as needed.
--- NOTE | 2020-05-16 09:52 | NUR ---
SPOKE WITH PT'S BROTHER
--- NOTE | 2020-05-16 10:00 | NUR ---
PT HAS BEEN RESTING IN BED WITH NO DISTRESS NOTED.
--- NOTE | 2020-05-16 11:38 | NUR ---
DECLINED OFFER FOR BATH, ORAL CARE, AND LINEN CHANGE AT THIS TIME. STATES HE HAD A SHOWER AT HOME BEFORE COMING TO HOSPITAL LAST NIGHT AND HE DOESN'T NEED ONE. SITTING UP IN BED EATING LUNCH.
--- NOTE | 2020-05-16 12:00 | NUR ---
PT IS RELAXING IN BED WITH NO DISTRESS NOTED. IV SITE IS FREE FROM REDNESS OR EDEMA. PT HAS TALKED TO FAMILY MEMBERS ON THE PHONE.
--- NOTE | 2020-05-16 14:03 | NUR ---
PT IS RESTING WITH EYES CLOSED.
--- NOTE | 2020-05-16 16:30 | NUR ---
pt has been relaxing in bed with no distress noted. iv site is free from redness or edema.
--- NOTE | 2020-05-16 17:47 | NUR ---
pt has been relaxing in bed with no distress noted. iv site is free from redness or edema.
--- NOTE | 2020-05-16 19:20 | NUR ---
awake. denies resp distress. o2 cont per nc. multi punch operator shows sinus rhythm pacs pvcs hr 84. #20 lac ns infusing @ 75cchr. po fluids taken fair. voids per urinal. spoke to pt @ length about prone position while sleeping. pt verbalized understanding. said "i'll try tonight." fall & air/contact precautions cont.
--- NOTE | 2020-05-16 20:30 | NUR ---
c/o gen disc. medicated as ordered.
--- NOTE | 2020-05-16 22:00 | NUR ---
eyes closed. no distress. o2 cont.
--- NOTE | 2020-05-16 23:50 | NUR ---
lab here. blood drawn.
[2020-05-17] VITALS (12 sets, daily range): BP systolic 99–132; BP diastolic 50–74
--- NOTE | 2020-05-17 00:01 | NUR ---
eyes closed. no distress. cardiac monitor technician shows sinus rhythm pcs pvcs hr 80.
--- NOTE | 2020-05-17 02:00 | NUR ---
awake. pt said "i bet you didn't think i was going to be awake. i can't wait to eat breakfast." instructed pt it was 2 am. pt said. well i have more time to sleep. no resp diff. o2 cont.
--- NOTE | 2020-05-17 04:00 | NUR ---
eyes closed. no distress. desk monitor shows sinus rhythm pacs pvcs hr 64.
--- NOTE | 2020-05-17 06:00 | NUR ---
lab here. blood drawn.
[2020-05-17 06:27] LABS: HEMATOCRIT 31.4 % (39.0-50.0); HEMOGLOBIN 10.3 g/dl (14.0-18.0); MEAN CELL VOLUME 92.6 fL CALC (80.0-100.0); MEAN CORPUSCULAR HGB 30.4 pG CALC (26.0-32.0); MEAN CORPUSCULAR HGB CONC 32.8 g/dL CAL (32.0-36.0); NEUT# 5.37 thou/uL (1.82-7.42); RED BLOOD COUNT 3.39 mill/uL (4.70-6.10); RED CELL DISTRI WIDTH 15.1 % (11.5-15.5)
[2020-05-17 06:29] LABS: IMMATURE GRANULOCYTES 7.3 % (0.0-5.0)
[2020-05-17 06:44] LABS: ALBUMIN 2.2 g/dL (3.2-5.0); ALKALINE PHOSPHATASE 70 u/l (38-126); ANION GAP 6 (6-22 (CALC)); BILIRUBIN, TOTAL 0.6 mg/dL (0.0-1.4); BUN 8 mg/dL (8-23); BUN/CREATININE RATIO 16 (12-20 (CALC)); CARBON DIOXIDE 31 mmol/l (22-30); CHLORIDE 97 mmol/l (95-108); CREATININE 0.5 mg/dL (0.7-1.3); GFR > 60 ML/MIN (>=60 (CALC)); GFR FOR AFR.AMER. > 60 ML/MIN (>=60 (CALC)); POTASSIUM 3.5 mmol/l (3.5-5.1); SGOT/AST 29 u/l (19-48); SODIUM 131 mmol/l (137-146); TOTAL PROTEIN 4.3 g/dL (6.3-8.2)
--- NOTE | 2020-05-17 07:20 | NUR ---
pt awake in bed; no apparent distress noted; pt offers no complaints; assessment completed at this time; pt alert and oriented; admits to pain; pain meds explained; pt request roxicodone 1 hr after normal (scheduled) pain med; no n/v noted per group underwriter; resp even and unlabored; lungs clear/ diminished bases; skin color wnl; o2 per nc at 7L hi asha; palliative senior np cough noted; hr reg; pulses present; no edema noted; sr on monitor; abd soft with bs present; no bm noted per group underwriter; pt voiding clear yellow urine without complication; urinal at bedside; #20 patent to lac with ivf infusing without complication; no redness or edema noted at site; plan of care/am meds/ covid 19 explained; call light within reach; will continue to monitor
--- NOTE | 2020-05-17 08:08 | NUR ---
awake in bed; no apparent distress noted; pt offers no complaints at this time; admits to being cold; blankets provided; iv intact and patent; sr on monitor; poor appetite noted; call light within reach; will continue to monitor
--- NOTE | 2020-05-17 08:47 | NUR ---
Dr Gonzales present at bedside to assess pt and discuss plan of care
--- NOTE | 2020-05-17 09:25 | NUR ---
call received from daughter Nancy; passcode verified; updated provided; informed daughter pt is now on 5L nc; daughter Nancy wishes for pt to be placed in a skilled nursing due to living condition; public relations writer informed daughter case management will be notified and will speak with pt in regards to his wishes of returning home or rehab; will continue to monitor
--- NOTE | 2020-05-17 10:09 | NUR ---
awake in bed; no apparent distress noted; medicated with prn pain med for pain scale of 3/10; iv intact and patent; urinals at bedside; sr on monitor; o2 per nc at 5L; am care/bath/oral care/linen change offered with pt refusal; continuity writer request for pt to sit in chair as per Dr Gonzales request; pt declined; continuity writer spoke with pt in great detail about rehab and pt wishes to reurn home; continuity writer informde pt of need to increse activity; call light within reach; will continue to monitor
--- NOTE | 2020-05-17 12:10 | NUR ---
awake in bed; health information tech light for various needs such as "moving the table away from the bed"; scenario writer at bedside; pt noted with o2 on head; states difficulty breathing; o2 re applied correctly; pt states he "got strangled" on a grape; pt complaining about "too much damn food"; scenario writer explained to pt that he is not obligated to eat the entire meal; pt requesting cream for butt; pt states "I have a raw area from laying here too long"; coccyx assess with no breakdown noted; barrier cream applied per scenario writer; pt repositioned to left side; freq repositioning from side to side encouraged d/t emaciated appearance; pt again refused to get up to chair; will continue to monitor
--- NOTE | 2020-05-17 14:07 | NUR ---
awake in bed; no apparent distress noted; pt offers no complaints; iv intact and patent; sr pac/pvc on monitor; o2 per nc; pt requesting grapes after previously stating he strangled on grapes; call light within reach; will continue to monitor
--- NOTE | 2020-05-17 14:13 | NUR ---
S: MAGDALENA NG is a 65 M who presents with COVID 19. He has a history of COVID 19. All medications in patient's chart were reviewed. O: VS: BP 106/73, P 90, RR 21,T 97.5 W 54kg, HT 70IN, Scr= 0.5, A: Blood culture <is pending P: Vancomycin ordered for pharmacy to dose. CONTINUE Vancomycin 1250MG IV Q12H. Vancomycin trough is drawn before the 4th dose on 05/19/20 @1330. Vancomycin goal trough is between <15-20 mcg/ml>. Pharmacy will follow and or advise on antibiotics use as needed.
--- NOTE | 2020-05-17 16:07 | NUR ---
awake in bed; no apparent distress noted; pt offers no complaints; iv intact and patent sr on monitor; o2 per nc; call light within reach; will continue to monitor
--- NOTE | 2020-05-17 18:03 | NUR ---
awake in bed eating dinner; no apparent distress noted; pt has removed oxygen to "eat"; pt has removed gown and blood pressure cuff to "eat"; sr/pvc on monitor; iv intact and patent; call light within reach
--- NOTE | 2020-05-17 19:38 | NUR ---
ASSESSMENT COMPLETED. NO DISTRESS NOTED. O2 INFUSING PER NC PER ORDER. IV SITE PATENT AND SL. SNACK PROVIDED. URINAL EMPTIED. DIRECTOR HARDWARE IN PLACE. ENCOURAGED TO CALL FOR ANY NEEDS.
--- NOTE | 2020-05-17 21:00 | NUR ---
ATTEMPTED TO TITRATE DOWN O2 FROM 5ITERS/MIN TO 4LITERS/MIN SPO2 DOWN TO 88% FROM 95%. RETURNED O2 DARY UP TO 5LITERS/MIN AND NOW BACK TO 92%. WILL CONTINUE TO MONITOR.
--- NOTE | 2020-05-17 23:44 | NUR ---
PT. C/O GENERALIZED PAIN AND MEDICATED WITH ORDERED PRN ROXICODONE, WILL REASSESS. SPO2 86% AND O2 TITRATED UP TO 7LITERS/MIN AND SPO2 UP TO 93%. WILL CONTINUE TO MONITOR.
[2020-05-18] VITALS (12 sets, daily range): BP systolic 99–127; BP diastolic 57–72
--- NOTE | 2020-05-18 02:30 | NUR ---
OFFERED PT. TO GET WASHED UP AND PT. DECLINES.
--- NOTE | 2020-05-18 04:01 | NUR ---
PT. SITTING UP IN BED WATCHING TV. NO DISTRESS NOTED. DENIES NEEDS. CALL LIGHT IS IN REACH.
--- NOTE | 2020-05-18 05:40 | NUR ---
PT. REMAINS WITH SPO2 RUNNING 90-92% ON 7LITERS/MIN PER HIGH FLOW NC. PT. INCONTINENT OF URINE; CHANDA CARE GIVEN AND LINENS CHANGED. ENCOURAGED TO CALL FOR ANY NEEDS. CALL LIGHT IS IN REACH.
--- NOTE | 2020-05-18 06:04 | NUR ---
SPO2 @98% AND TITRATED BACK DOWN TO 5LITERS/MIN HIGH FLOW; SPO2 RUNNING 95%.
--- NOTE | 2020-05-18 07:30 | NUR ---
pt awake in bed; no apparent distress noted; pt offers no complaints; pt very demanding; assessment completed at this time; pt alert and oriented; offers no complaints of pain at this time; no n/v noted; resp even and unlabored; sob with exertion noted; lungs clear/ diminished; skin color wnl; o2 per nc at 5L; COLON THERAPIST cough noted; hr reg; strong pulses; no edema noted; sr pac/pvc on monitor; abd soft with bs hypoactive; no bm noted per hand sign writer; pt voiding without complication; no urine to inspect at this time; urinal at bedside; #20 patent to lac with ivf infusing without complication; no redness or edema noted at site; hand sign writer request pt to get in chair for breakfast; pt compliant/ up to chair; plan of care/ am meds explained; call light within reach; will continue to monitor
--- NOTE | 2020-05-18 08:00 | NUR ---
awake in chair; requesting to go back to bed; o2 off per pt; pt refusing to wear oxygen while eating; importance of o2 explained; iv intact; st on monitor; call light within reach; will continue to monitor
--- NOTE | 2020-05-18 08:40 | NUR ---
awake in chair screaming at staff through glass door; automatic typewriter inspector at bedside to assess pt; pt yelling requesting to go back to bed; pt admits to back pain while sitting; urinary incontinence noted; partial bath per pt upon automatic typewriter inspector command; back to bed; o2 per nc; iv intact and patent; st on monitor; call light within reach; will continue to monitor
--- NOTE | 2020-05-18 09:20 | NUR ---
Dr Gonzales present at bedside to assess pt and discuss plan of care
--- NOTE | 2020-05-18 10:02 | NUR ---
awake in bed; no apparent distress noted; resp even and ulabored; pt has removed oxygen to eat magic cup; sr on monitor; iv intact and patent; no redness or edema noted at site; call light within reach; will continue to monitor
--- NOTE | 2020-05-18 12:04 | NUR ---
awake in bed; no apparent distress noted; pt offers no complaints; iv intact and patent; sr on monitor; pt noted to have removed o2; sat 70s on ra; importance of oxygen explained again; call light within reach; will continue
--- NOTE | 2020-05-18 14:00 | NUR ---
awake in bed conversing on portable phone with brother Nain; no apparent distress noted; iv intact and patent; eating magic cup; o2 per nc; sr on monitor; call light within reach; will continue to monitor
--- NOTE | 2020-05-18 16:00 | NUR ---
awake in bed; no apparent distress noted; o2 per nc; iv intact and patent; sr on monitor; call light within reach; will continue to monitor
--- NOTE | 2020-05-18 17:10 | NUR ---
pt gauge controller light stating "i'm dying of thrist"; junior underwriter at bedside with juice as requested; pt reminded of pitcher of water provided earlier; pt with complaints of butt hurting; pt has been refusing to repositioned; pt encourage to turn from side to side; redness with a pinpoint opening noted to inner left buttuck; barrier cream applied; will continue to monitor
--- NOTE | 2020-05-18 18:07 | NUR ---
pt awake in bed director of plant operations light; stating he needs help; in to asess pt; pt noted with xlg loose brown incont stool; pericare/partial bath per this property underwriter; assist to chair; complete linen change; barrier cream applied to coccyx; pt encouraged to remain in chair but refuses; back to bed with very weak unsteady gait; sr on monitor; o2 per nc; iv patent; call light within reach;
--- NOTE | 2020-05-18 19:00 | NUR ---
REPORT RECEIVED FROM Haydee ANDERSON RN, CARE OF PT ASSUMED AT THIS TIME.
--- NOTE | 2020-05-18 19:30 | NUR ---
PT RESTING IN BED WATCHING TV. OXYGEN IS REMOVED. NO APPARENT DISTRESS OR INCREASED WORK OF BREATHING OBSERVED. SPO2 85%. WHEN QUESTIONED ABOUT REMOVING OXYGEN PT STATES "I DIDN'T EVEN REALIZE IT WAS OFF". HIGH FLOW NASAL CANNULA RE-APPLIED, FIO2 INCREASED TO 6L/MIN. DISCUSSED WITH PATIENT AT LENGTH THE IMPORTANCE OF COMPLIANCE WITH O2 THERAPY, PT VERBALIZES UNDERSTANDING, DENIES QUESTIONS AND AGREES TO MAINTAIN NASAL CANNULA IN PLACE. PHYSICAL ASSESMENT COMPLETE. DENIES FURTHER NEEDS AT THIS TIME. CALL DANIEL WITHIN REACH, AGREES TO CALL PRN.
--- NOTE | 2020-05-18 20:55 | NUR ---
SCHEDULED MEDICATIONS ADMINISTERED. ALBUTEROL ADMINISTERED NOW PER PT REQUEST. PRN OXYCODONE ADMINISTERED PER PTS REQUEST FOR C/O NECK PAIN 02/19. SEE E-MAR.
--- NOTE | 2020-05-18 22:55 | NUR ---
SPO2 77%, PT HAS OXYGEN REMOVED, PTS FINGERS ARE COVERED IN STOOL, BED RAILS AND MONITOR WIRES ARE SMEARED WITH STOOL. NASAL CANNULA RE-APPLIED. PT STATES HE DIDNT REALIZE HE HAD A BM. STOOL IS A SMALL AMOUNT SOFT/PASTY. PT WASHED, FINGER NAILS SOAKED IN SOAPY WATER AND SCRUBBED CLEAN OF STOOL. LINENS CHANGED. SP02 UP T0 85% AND CLIMBING, WILL CON'T TO MONITOR. PT DENIES FURTHER NEEDS. CALL DANIEL WITHIN REACH, AGREES TO CALL PRN.
--- NOTE | 2020-05-18 23:04 | NUR ---
SPO2 96%, PT RESTING IN BED, APPEARS COMFORTABLE AND IN NO APPARENT DISTRESS, RESPIRATIONS REGULAR AND UNLABORED, CALL DANIEL REMAINS WITHIN REACH.
[2020-05-19] VITALS (12 sets, daily range): BP systolic 97–141; BP diastolic 45–81
--- NOTE | 2020-05-19 01:38 | NUR ---
200ML YELLOW URINE EMPTIED FROM URINAL. PT RESTING IN BED, WATCHING TV. DENIES FURTHER NEEDS. CALL DANIEL WITHIN REACH, AGREES TO CALL PRN.
--- NOTE | 2020-05-19 05:05 | NUR ---
PROCESS DEVELOPMENT ENGINEER AT BEDSIDE TO DRAW AM LABS. 500ML CLEAR YELLOW URINE EMPTIED FROM URINALS. PT DENIES FURTHER NEEDS AT THIS TIME. CALL DANIEL WITHIN REACH, AGREES TO CALL PRN.
[2020-05-19 05:25] LABS: HEMATOCRIT 29.8 % (39.0-50.0); HEMOGLOBIN 9.7 g/dl (14.0-18.0); MEAN CELL VOLUME 92.8 fL CALC (80.0-100.0); MEAN CORPUSCULAR HGB 30.2 pG CALC (26.0-32.0); MEAN CORPUSCULAR HGB CONC 32.6 g/dL CAL (32.0-36.0); NEUT# 4.92 thou/uL (1.82-7.42); RED BLOOD COUNT 3.21 mill/uL (4.70-6.10); RED CELL DISTRI WIDTH 15.2 % (11.5-15.5)
[2020-05-19 05:27] LABS: IMMATURE GRANULOCYTES 7.2 % (0.0-5.0)
[2020-05-19 05:48] LABS: ANION GAP 4 (6-22 (CALC)); BUN 11 mg/dL (8-23); BUN/CREATININE RATIO 17 (12-20 (CALC)); C-REACTIVE PROTEIN 6.1 mg/dL (0-0.9); CARBON DIOXIDE 34 mmol/l (22-30); CHLORIDE 98 mmol/l (95-108); CREATININE 0.6 mg/dL (0.7-1.3); GFR > 60 ML/MIN (>=60 (CALC)); GFR FOR AFR.AMER. > 60 ML/MIN (>=60 (CALC)); SODIUM 133 mmol/l (137-146)
--- NOTE | 2020-05-19 07:40 | NUR ---
pt awake in bed; no apparent distress noted; pt offers no complaints; assessment completed at this time; pt alert and oriented; offers no complaints of pain at this time; no n/v noted; resp even and unlabored; lungs clear/ diminished; skin color wnl; o2 per nc at 6L; videographer cough noted; hr reg; strong pulses; no edema noted; abd soft with bs present; xlg stool incont noted; pt noted with stool covering hands, arms, urinals, bed rails; pt instructed to use call light to inform staff of incont or informs staff of need to get to bsc; urinals x3 at bedside with clear yellow urine; #20 patent to lac with ivf infusing without complication; no redness or edema noted at site; small open area noted to left coccyx; complete bed bath and linen change administered; pt refusing oral care; plan of care/ am meds explained; call light within reach; will continue to monitor
--- NOTE | 2020-05-19 08:05 | NUR ---
pt awake in bed eating breakfast; no apparent distress noted; o2 per nc; iv intact and patent; sr on monitor; call light within reach; will continue to monitor
--- NOTE | 2020-05-19 09:10 | NUR ---
ABI Rose present at bedside to assess pt and discuss plan of care
--- NOTE | 2020-05-19 10:07 | NUR ---
awake in bed watching tv; no apparent distress noted; sr on monitor; o2 per nc at 6L; call light within reach; will continue to monitor
--- NOTE | 2020-05-19 11:43 | NUR ---
pt physicians and surgeons light requesting help; when staff enter the room and inquire what's wrong, pt throws hands in the air and look down at penis area; liquid stool noted; staff inquires about pt not using call light and pt states I don't know"; pt very rude and agrumentive with staff; pericare per staff; linen changed; pt encouraged to sit in chair for 2 hours; pt agrumentive and agree to 45 min; call light within reach; will continue to monitor
--- NOTE | 2020-05-19 12:00 | NUR ---
awake in chair eating lunch; no apparent distress noted; sr on monitor; pt has removed o2 to eat lunch despite having been explained the importance of leaving o2 in place; iv intact and patent; call light within reach; will continue to monitor
--- NOTE | 2020-05-19 13:27 | NUR ---
awake; requesting apple juice, provided; assisted back to med; monitoring attachments conected; will continue to monitor
--- NOTE | 2020-05-19 13:35 | NUR ---
S: MAGDALENA NG is a 65 M who presents with pneumoinia due to 2019 novel coronavirus, COPD with excerbation and acute respiratory failure hypoxia. He has a history of non-hodgkin's lymphoma, COPD, chronic pain syndrome. All medications in patient's chart were reviewed. O: VS: BP 106/62 mmHg, P83 bpm, RR 18 breats/min, T 97.4 F W 53.17 kg, HT177.8 cm, Scr= 1 mg/dL,CrCl= 130 ml/min A: Blood culture show no growth. P: Patient is on Vancomycin IV. Vancomycin ordered for pharmacy to dose. Start Vancomycin 1250 mg IV Q12H. Vancomycin trough is drawn before the 4th dose on 05/19/20 at 1330. Vancomycin goal trough is between <15-20 mcg/ml>. Pharmacy will follow and or advise on antibiotics use as needed.
--- NOTE | 2020-05-19 14:00 | NUR ---
awake in bed; no apparent distress noted; resp even and unlabored; iv intact and patent; no redness or edema noted at site; sr on monitor; call light within reach; will continue to monitor
--- NOTE | 2020-05-19 14:45 | NUR ---
awake in bed; meds administered; pt assisted to bsc; urine and stool noted; pericare per administrative underwriter; iv intact and patent; call light within reach; will continue to monitor
--- NOTE | 2020-05-19 15:54 | NUR ---
resting in bed with eyes closed; no apparent distress noted; resp even and unlabored; o2 per nc; sr on monitor; call light within reach; will continue to monitor
--- NOTE | 2020-05-19 18:03 | NUR ---
awake in bed eating dinner; no apparent distress noted; iv intact and patent; no redness or edema noted at site; o2 per nc; sr on monitor; call light within reach
--- NOTE | 2020-05-19 19:50 | NUR ---
ASSESSMENT COMPLETED. NO DISTRESS NOTED; VOICES NO CONCERNS. SNACK AND COFFEE POVIDED. IV SITE PATENT AND ORDERED NS @KVO INFUSING WELL. DUODERM APPLIED TO LEFT COCCYX. PT. IS DRY OF INCONTINENCE AND URINAL AT BEDSIDE. ENCOURAGED TO CALL FOR ANY NEEDS. WILL CONTINUE TO MONITOR.
--- NOTE | 2020-05-19 22:15 | NUR ---
RESTING IN BED WITH NO DISTRESS NOTED. SPO2 93% ON 6LITERS/MIN HF NC. WILL CONTINUE TO MONITOR.
--- NOTE | 2020-05-19 23:31 | NUR ---
PT. C/O GENERA;IZED PAIN AND MEDICATED WITH ORDERED PRN ROXICODONE; WILL REASSESS. REMINDED TO LEAVE O2 ON AND REAPPLIED. ENCOURAGED TO CALL FOR ANY NEEDS. CALL LIGHT IS IN REACH.
[2020-05-20] VITALS (13 sets, daily range): BP systolic 103–144; BP diastolic 59–93
--- NOTE | 2020-05-20 03:00 | NUR ---
RESTING IN BED WITH NO DISTRESS NOTED. DENIES NEEDS/PAIN. VSS. SPO2 99-100% AND O2 TITRATED DOWN TO 5LITERS/MIN; WILL CONTINUE TO MONITOR.
--- NOTE | 2020-05-20 06:00 | NUR ---
PT. UP TO BSC WITHOUT CALLING AND REMOVED O2; REAPPLIED AFTER A FEW MINUTES WITHOUT HAVING O2 AND TITRATE UP TO 8LITERS/MIN HF AND SPO2 89-90% WILL CONTINUE TO MONITOR. NO DISTRESS NOTED. PT. CLEANED OF AN INCONTINENCE OF URINE AND BM AND GOWN CHANGED. PT. IS ALERT AND SPEAKING WITH STAFF. COFFEE PROVIED. CALL LIGHT IS IN REACH.
[2020-05-20 07:04] LABS: HEMATOCRIT 30.3 % (39.0-50.0); HEMOGLOBIN 9.9 g/dl (14.0-18.0); MEAN CELL VOLUME 92.9 fL CALC (80.0-100.0); MEAN CORPUSCULAR HGB 30.4 pG CALC (26.0-32.0); MEAN CORPUSCULAR HGB CONC 32.7 g/dL CAL (32.0-36.0); NEUT# 4.38 thou/uL (1.82-7.42); RED BLOOD COUNT 3.26 mill/uL (4.70-6.10); RED CELL DISTRI WIDTH 15.4 % (11.5-15.5)
[2020-05-20 07:14] LABS: IMMATURE GRANULOCYTES 7.1 % (0.0-5.0)
[2020-05-20 07:35] LABS: ALBUMIN 2.3 g/dL (3.2-5.0); ALKALINE PHOSPHATASE 86 u/l (38-126); ANION GAP 7 (6-22 (CALC)); BILIRUBIN, TOTAL 0.7 mg/dL (0.0-1.4); BUN 11 mg/dL (8-23); BUN/CREATININE RATIO 15 (12-20 (CALC)); CARBON DIOXIDE 32 mmol/l (22-30); CHLORIDE 98 mmol/l (95-108); CREATININE 0.7 mg/dL (0.7-1.3); GFR > 60 ML/MIN (>=60 (CALC)); GFR FOR AFR.AMER. > 60 ML/MIN (>=60 (CALC)); POTASSIUM 3.5 mmol/l (3.5-5.1); SGOT/AST 28 u/l (19-48); SODIUM 133 mmol/l (137-146); TOTAL PROTEIN 4.3 g/dL (6.3-8.2)
--- NOTE | 2020-05-20 08:00 | NUR ---
PT RESTING IN BED. NO SIGNS OF DISTRESS. VITALS STABLE ON MONITOR. ITEMS AND CALL LIGHT WITHIN REACH. BED IN LOW POSTION. EATING BREAKFAST AT THIS TIME.
--- NOTE | 2020-05-20 10:00 | NUR ---
PT SITTING UPRIGHT IN BED. GRAPES PROVIDED AT PT REQUEST. IV MEDS INFUSING WITHOUT COMPLICATIONS.
--- NOTE | 2020-05-20 12:00 | NUR ---
PT SITTING HIGH FOWLERS IN BED. LUNCH PROVIDED. MEDS ADMINISTERED. IV INFUSING WITHOUT COMPLICATIONS. FAMILY PROVIDED WITH UPDATE ON PTS CONDITION. PT REPORTS PAIN IMPROVED AND DENIES ANY OTHER NEEDS AT THIS TIME.
--- NOTE | 2020-05-20 14:00 | NUR ---
PT RESTING IN BED. TALKING ON PHONE WITH BROTHER. IV MEDS INFUSING WITHOUT COMPLICATIONS. REPORTS PAIN 8/10 TO NECK. PRN PAIN MEDS ADMINISTERED, WILL CONTINUE TO MONITOR.
--- NOTE | 2020-05-20 16:02 | NUR ---
PT WATCHING TV. IV MEDS COMPLETED. VITALS STABLE ON MONITOR. O2 IN PLACE, NO SIGNS OF DISTRESS.
--- NOTE | 2020-05-20 18:00 | NUR ---
DINNER PROVIDED TO PT. NO COMPLAINTS AT THIS TIME. PERSONAL ITEMS AND CALL LIGHT WITHIN REACH.
--- NOTE | 2020-05-20 20:20 | NUR ---
PT AWAKE, ALERT AND ORIENTED X3. PT WAS ASSESSED. PTT ABLE TO FOLLOW DIRECTIONS AND ASNWER QUESTIONS. PT DOES BECOME AGITATED. HE STATED TO ME, "YOU DON'T KNOW WHAT YOU'RE DOING, I'VE BEEN IN HERE FOR AWHILE AND I KNOW WHAT TO DO," AFTER I WAS CHECKING HIS ORAL TEMPERATURE WITH THE THERMOMETER AND IT WAS STILL READING HIS TEMP WHEN HE WANTED TO PULL IT OUT. PT IS ON HIGH FLOW NC AT 8 L/MIN HUMIDIFIED. LAC 20 G IV INTACT AND NS AT 10 ML/HR. SR ON TELE. ICED WATER PROVIDED. MOTHERCRAFT NURSE COUGH. SELF REPSOTIONS, ENCOURAGED TO LAY OFF OF HIS BUTTOCKS SINCE HE DOES HAVE A SMALL OPEN AREA TO LEFT BUTTOVK NEAR COCCYX. PATIENT ABLE TO SWALLOW HIS BEDTIME MEDS. PT DOES DESAT WITH EXERTION. HOB NEAR 30 DEGREES, ENCORAGED DEEP BREATHING. CALL LIGHT WITHIN REACH.
--- NOTE | 2020-05-20 21:20 | NUR ---
PT DIETARY COOK LIGHT, REQUESTS TO BE CHANGED. PT HAD A LARGE LOOSE INCONTINENT BM. CHANDA CARE PROVIDED. GOWN CHANGED, NEW DUODERM APPLIED. 350 ML IN URINAL EMPTIED. CALL LIGHT WITHIN REACH.
[2020-05-21] VITALS (10 sets, daily range): BP systolic 101–144; BP diastolic 57–81
--- NOTE | 2020-05-21 00:37 | NUR ---
ANTIBIOTIC INFUSING NOW, PT IS AWAKE, WATCHES TV. URINAL EMPTIED. NO NEEDS OR COMPLAINTS AT THIS TIME. CALL LIGHT WITHIN REACH.
--- NOTE | 2020-05-21 02:30 | NUR ---
VANCOMYCIN INFUSING NOW. PT IN NO ACUTE DISTRESS, AWAKENS EASILY. NO NEEDS OR COMPLAINTS AT THIS TIME.
[2020-05-21 05:21] LABS: HEMATOCRIT 28.9 % (39.0-50.0); HEMOGLOBIN 9.3 g/dl (14.0-18.0); MEAN CELL VOLUME 93.2 fL CALC (80.0-100.0); MEAN CORPUSCULAR HGB CONC 32.2 g/dL CAL (32.0-36.0); NEUT# 4.31 thou/uL (1.82-7.42); RED BLOOD COUNT 3.1 mill/uL (4.70-6.10); RED CELL DISTRI WIDTH 15.5 % (11.5-15.5)
[2020-05-21 05:27] LABS: IMMATURE GRANULOCYTES 6.8 % (0.0-5.0)
[2020-05-21 05:56] LABS: ALBUMIN 2.2 g/dL (3.2-5.0); ALKALINE PHOSPHATASE 85 u/l (38-126); ANION GAP 6 (6-22 (CALC)); BILIRUBIN, TOTAL 0.7 mg/dL (0.0-1.4); BUN 11 mg/dL (8-23); BUN/CREATININE RATIO 16 (12-20 (CALC)); C-REACTIVE PROTEIN 4.8 mg/dL (0-0.9); CARBON DIOXIDE 33 mmol/l (22-30); CHLORIDE 98 mmol/l (95-108); CREATININE 0.7 mg/dL (0.7-1.3); GFR > 60 ML/MIN (>=60 (CALC)); GFR FOR AFR.AMER. > 60 ML/MIN (>=60 (CALC)); POTASSIUM 3.6 mmol/l (3.5-5.1); SGOT/AST 24 u/l (19-48); SODIUM 134 mmol/l (137-146); TOTAL PROTEIN 4.2 g/dL (6.3-8.2)
--- NOTE | 2020-05-21 06:00 | NUR ---
PATIENT MAJOR GIFTS OFFICER LIGHT, REQUESTING TO BE CHANGED FOR INCONTINENT BM. CHANDA-CARE PROVIDED. BRIEF APPLIED. IV ANTIBIOTIC INFUSING NOW. NO COMPLAINTS AT THIS TIME. REMAINS ON HIGH FLOW NC AT 8 L/MIN, SATS GREATER THAN 90%. CALL LIGHT WITHIN REACH.
--- NOTE | 2020-05-21 06:45 | NUR ---
RECIEVED REPORT FROM MORIAH BAUTISTA. ASSUMED PT CARE.
--- NOTE | 2020-05-21 07:30 | NUR ---
PT A&OX4, ABLE TO MAKE NEEDS KNOWN. REMAIN SR ON TELEMETRY. HR 76. PT DENIES CP OR SOB AT THIS TIME. RESPIRATIONS EVEN/UNLABOERED, NO COUGH NOTED, LS CLEAR THROUGHOUT, SA02@92% ON 8LPM/HF/NC. NS INFUSING KVO 20G@LAC, NO S/S OF INFILTRATION NOTED AT SITE. ABDOMEN FLAT, NON-TENDER, BSX4 ACTIVE. LBM 20. BRIEF CDI, DUODERM TO L BUTTOCK CDI. PT WITH 500ML CLEAR YELLOW URINE IN URINAL AT BS. PT REPORTS NECK PAIN 03/21, MEDICATED ORDERED PER PT REQUEST. CALL LIGHT IN REACH. WILL MONITOR.
--- NOTE | 2020-05-21 08:31 | NUR ---
PT BROTHER CALLED WITH CODE, UPDATE GIVEN.
--- NOTE | 2020-05-21 08:35 | NUR ---
PT INCONTINENT, GOOD PERICARE PROVIDED, GOWN CHANGE AND BRIEF CHANGED. CALL LIGHT IN REACH. WILL MONITOR.
--- NOTE | 2020-05-21 09:38 | NUR ---
PT RECIEVED PHONE CALL FROM VIRY, CALL TRANSFERRED TO PORTABLE IN ROOM.
--- NOTE | 2020-05-21 09:43 | NUR ---
PT DAUGHTER PENNIE CALLED, CALL TRANSFERRED TO ROOM VIA PORTABLE.
--- NOTE | 2020-05-21 11:19 | NUR ---
PT RESTING IN BED, NO DISTRESS NOTED.
--- NOTE | 2020-05-21 12:04 | NUR ---
DIETARY ON UNIT, LUNCH TRAY SET UP.
--- NOTE | 2020-05-21 13:01 | NUR ---
PT INC ON BM, LG BLK LOOSE. GOOD PERICARE GIVEN. PT LINEN CHANGED. PT MEDICATED FOR NECK PAIN 02/19, ORDERED PER PT REQUEST.FAMILY BROUGHT PT WALLET. LEFT AT BEDSIDE PER PT REQUEST. CALL LIGHT IN REACH. WILL MONITOR.
--- NOTE | 2020-05-21 14:11 | NUR ---
PT IS RECEIVING VANCOYMCIN 1250MG IV Q12H FOR PNEUMONIA. GOAL TROUGH IS 15-20 MCG/ML. TROUGH TODAY WAS 18 MCG/ML. CONTINUE AT SAME DOSE. WILL RE-CHECK TROUGH ON 05/23 @ 1330. PHARMACY WILL CONTINUE TO FOLLOW AND ADVISE NEEDED.
--- NOTE | 2020-05-21 16:00 | NUR ---
PT INC OF BM, GOOD CHANDA CARE PROVIDED, BARRIER CREAM APPLIED, DUODERM INTACT. PT TOLERATED WELL. CALL LIGHT IN REACH. WILL MONITOR.
--- NOTE | 2020-05-21 17:58 | NUR ---
PT RESTING IN BED, RESPIRATIONS EVEN/UNLABORED. SA02@92%. TITRATED O2 DOWN TO 5LPM/HF/NC. CALL LIGHT IN REACH. WILL MONITOR.
--- NOTE | 2020-05-21 19:59 | NUR ---
NURSE LAZARO HAS PROVIDEDPATIENT WITH ICED WATER AND SNACK PER PT REQUEST. PT IS EATING. NO ACUTE DISTRESS SHOWN.
--- NOTE | 2020-05-21 21:20 | NUR ---
PATIENT WATCH REPAIR TECHNICIAN LIGHT , REQUESTED TO BE CHANGED. CHANDA CARE WAS PROVIDED, NEW GOWN PLACED. NEW PADS PLACED. NEW DUODERM PLACED ON COCCYX. BARRIER OINTMENT WAS APPLIED TO BUTTCOKS AND CHANDA AREA WELL. PT ABLE TO REPOSITION SELF. HE PULLED HIMSELF UP. WAS ABLE TO SIT UP FOR ASSESSMENT OF LUNG SOUNDS AND REST OF ASSESSMENT. PATIENT HOLDS HIS BROWN WALLET. PATENT'S O2 DROPS TO HIGH 80'S WITH EXERTION, HIS FINGER DOES BECOME COLD AT TIMES AND PULSE OX GIVES FALSE READINGS AT TIMES. NEW PULSE OX APPLIED WELL. RAC IV INTACT, NS INFUSING AT 10 ML/HR. AFEBRILE. BP WNL. SR ON TELEMETRY. PT ON 5 L/MIN HIGH FLOW NC WITH HUMIDIFICATION. BEDTIME MEDS GIVEN WITH SCHEDULED PAIN MED WELL. NO OTHER NEEDS AT THIS TIME. CALL LIGHT WITHIN REACH.
[2020-05-22] VITALS (8 sets, daily range): BP systolic 104–140; BP diastolic 61–85
--- NOTE | 2020-05-22 01:13 | NUR ---
ZOSYN INFUSING AT THIS TIME. EMPTIED URINAL. PLACED A LFA 22 G IV AND REMAOVE LAC 20G IV. PATIENT BECAME AGITATED IN THE PROCESS OF PLACING NEW IV AND REMOVING PRIOR IV. PATIENT WAS EXPLAINED AT THE BEGINNING FOR REPLACEMENT OF IV AND HAD AGREED. PATIENT NOW WATCHES TV. NO OTHER NEEDS OR COMPLAINTS AT THIS TIME. CALL LIGHT WITHIN REACH.
--- NOTE | 2020-05-22 03:44 | NUR ---
PATIENT HAD PULLED OFF HIS PULSE OX, HE HAD HIS NASAL CANNULA OFF WELL, PATIENT WAS EDUACTED ON PULSE OX AND NASAL CANNULA, AGREES TO KEEP IT ON. URINAL EMPTIED. AFEBRILE. WATCHES TV. NO OTHER COMPLAINTS OR NEEDS AT THIS TIME.
--- NOTE | 2020-05-22 04:17 | NUR ---
PATIENT'S O2 SAT IS 100% ON 5 L/MIN HIGH FLOW. WEANED O2 TO 4 L/MIN.
--- NOTE | 2020-05-22 06:32 | NUR ---
CHANDA CARE PROVIDED, PT HAD A SMALL SOFT/LOOSE BM. BARRIER OINTMENT APPLIED TO BUTTOCKS. DUODERM INTACT. URINAL EMPTIED, URINE IS CLEAR AND YELLOW. O2 WEANED TO 3 L/MIN HIGH FLOW NC. PT SATS 94%. NO SOB NOTED THROUGH THE NIGHT. PT DESTED TO 90% WITH EXERTION. LFA IV INTACT. ZOSYN INFUSING NOW. PT HAS NO COMPLAINTS OR OTHER NEEDS AT THIS TIME. CALL LIGHT WITHIN REACH.
--- NOTE | 2020-05-22 06:45 | NUR ---
RECIEVED REPORT FROM MORIAH BAUTISTA. ASSUMED PT CARE.
--- NOTE | 2020-05-22 07:30 | NUR ---
PT A&OX4, ABLE TO MAKE NEEDS KNOWN. SR ON TELEMETRY, HR 72. DC DENIES CP OR SOB. PT STATED NECK PAIN 02/19, MEDICATED ORDERED PER PT REQUEST. RESPIRATION EVEN/UNLABORED, LS CLEAR THROUGHOUT, SA02@98% ON 3L/HF/NC. PT TITRATED TO 2LPM/HF/NC, WILL MONITOR. ABDOMEN SOFT, NON-TENDER, BSX4 ACTIVE. LBM 9-10-20. PT EDUCATED ON THE IMPORTANCE OF DEEP BREATHING AND MOVEMENT, TOLD PT WE WOULD BE GETTING CLEANED UP AND SITTING UP IN CHAIR, PT REFUSED AT THIS TIME, STATED " I'M STAYING RIGHT HERE IN THIS BED ". i NEED SOMETHING FOR PAIN", PT REMINDED HE JUST RECIEVED HIS PAIN MEDICATION. PT THEN STATED "OH YEA, THATS RIGHT, SORRY" BREAKFAST TRAY SET UP. CALL LIGHT IN REACH. WILL MONITOR.
--- NOTE | 2020-05-22 08:00 | NUR ---
PT INC OF BM, LARGE SOFT, DARK BROWN. COMPLETE BED BATH GIVEN WITH GOOD PERICARE PROVIDED. PT ASSISTED TO RECLINER, TOLERATED WELL. COMPLETE BED LINEN CHANGE.
--- NOTE | 2020-05-22 08:15 | NUR ---
DR. DOMINGUEZ AT BEDSIDE FOR ASSESSMENT AND TO DISCUSS PLAN OF CARE, NEW ORDERS TO TRANSFER PT TO MS. CALLED FOR BED.
--- NOTE | 2020-05-22 09:00 | NUR ---
PT CALLED, DEMANDING TO GET BACK IN BED, PT ENCOURAGED TO RECONSIDER, PT REFUSED. ASSISTED BACK TO BED. CALL LIGHT IN REACH. WILL MONITOR.
--- NOTE | 2020-05-22 09:37 | NUR ---
PT BROTHER CALLED WITH CODE, UPDATE GIVEN. BROTHER MAGDALENA STATED HE WASN'T READY FOR PT TO COME HOME YET. HE WAS ENCOURAGED TO SPEAK WITH CM TO COME UP WITH A PLAN OF SUCCESS. CALL TRANSFERRED TO CM.
--- NOTE | 2020-05-22 11:15 | NUR ---
REPORT CALLED TO GERONIMO MAJOR. PT TO BE TRANSFERRED TO [facility] 290.
--- NOTE | 2020-05-22 11:30 | NUR ---
LUNCH TRAY SET UP, PT MEDICATED FOR NECK PAIN 02/19 ORDERED PER PT REQUEST. PT ALSO GIVEN COFFEE AND ICE CREAM PER REQUEST. PT SPILLED TEA, CLEANED UP. CALL LIGHT IN REACH. WILL MONITOR AND TRANSFER PT VIA WC TO AL ROOM 290 AFTER PT IS FINISHED EATING LUNCH, PT AWARE OF PLAN.
--- NOTE | 2020-05-22 13:03 | NUR ---
PT ARRIVED TO ROOM VIA WHEELCHAIR WITH ICU STAFF; ORIENTED TO NEW ROOM AND CALL LIGHT SYSTEM. REMAINS ON [place]/CONTACT PRECAUTIONS FOR POSITIVE COVID RESULTS. RESPOIRATIONS EVEN AND UNLABORED ON OXYGEN 2L VIA NC. SAFETY MEASURES IN PLACE. CALL LIGHT WITHIN REACH.
--- NOTE | 2020-05-22 15:45 | NUR ---
INCONTINENET OF BOWEL; ASSISTED WITH HYGIENE. INHALER GIVEN PER SCHEDULE.
--- NOTE | 2020-05-22 19:00 | NUR ---
REPORT RECEIVED FROM MORIAH MELTON. PT RESTING IN BED. NO S/S OF DISTRESS AT THIS TIME. WILL CONTINUE TO MONITOR.
--- NOTE | 2020-05-22 21:10 | NUR ---
PT RESTING IN BED, ALERT AND ORIENTED. RESPIRATIONS EVEN AND UNLABORED ON O2 @ 2L, LUNGS SOUND DIMINISHED. PEDAL PULSES STRONG. CALL DANIEL WITHIN REACH. WILL CONTINUE TO MONITOR.
--- NOTE | 2020-05-23 00:26 | NUR ---
PT RESTING IN BED, NO S/S OF DISTRESS AT THIS TIME. SAFETY PRECAUTIONS IN PLACE. WILL CONTINUE TO MONITOR.
[2020-05-23 00:35] VITALS: BP 115/70
--- NOTE | 2020-05-23 04:05 | NUR ---
PT RESTING IN BED. NO S/S OF DISTRESS AT THIS TIME. SAFETY PRECAUTIONS IN PLACE. WILL CONTINUE TO MONITOR.
[2020-05-23 04:57] LABS: HEMATOCRIT 28.9 % (39.0-50.0); HEMOGLOBIN 9.3 g/dl (14.0-18.0); IMMATURE GRANULOCYTES 5.9 % (0.0-5.0); MEAN CELL VOLUME 92.3 fL CALC (80.0-100.0); MEAN CORPUSCULAR HGB 29.7 pG CALC (26.0-32.0); MEAN CORPUSCULAR HGB CONC 32.2 g/dL CAL (32.0-36.0); NEUT# 5.33 thou/uL (1.82-7.42); RED BLOOD COUNT 3.13 mill/uL (4.70-6.10); RED CELL DISTRI WIDTH 15.5 % (11.5-15.5)
[2020-05-23 05:16] LABS: ALBUMIN 2.6 g/dL (3.2-5.0); ALKALINE PHOSPHATASE 95 u/l (38-126); ANION GAP 6 (6-22 (CALC)); BILIRUBIN, TOTAL 0.7 mg/dL (0.0-1.4); BUN 8 mg/dL (8-23); BUN/CREATININE RATIO 14 (12-20 (CALC)); C-REACTIVE PROTEIN 3.5 mg/dL (0-0.9); CARBON DIOXIDE 34 mmol/l (22-30); CHLORIDE 95 mmol/l (95-108); CREATININE 0.6 mg/dL (0.7-1.3); GFR > 60 ML/MIN (>=60 (CALC)); GFR FOR AFR.AMER. > 60 ML/MIN (>=60 (CALC)); POTASSIUM 3.2 mmol/l (3.5-5.1); SGOT/AST 25 u/l (19-48); SODIUM 132 mmol/l (137-146); TOTAL PROTEIN 4.7 g/dL (6.3-8.2)
[2020-05-23 09:08] VITALS: BP 106/61
--- NOTE | 2020-05-23 09:08 | NUR ---
PT SITTING IN BED. A&O X3. NO DISTRESS NOTED. O2 VIA NC @ 3L IN PLACE. PT REPORTS CHRONIC NECK PAIN. NO OTHER NEEDS AT THIS TIME. ASSESSMENT COMPLETED. DISCUSSED POC. CALL LIGHT IN REACH. CONTINUE TO MONITOR.
[2020-05-23 11:13] VITALS: BP 148/80
--- NOTE | 2020-05-23 14:50 | NUR ---
PT FOUND IN BED WITH IV REMOVED, PT DOES NOT "RECALL" REMOVING IV ACCESS, PER PT "OH NO YOU ARE NOT STICKING ME AGAIN, THEY'VE DONE THAT WAY TOO MANY TIMES HERE" , SNEHA ALMODOVAR NOTIFIED, PER SCOOBY PT OKAY WITHOUT IV ACCESS AT THIS TIME. SEE CHART FOR ORDER.
[2020-05-23 15:13] VITALS: BP 114/65
[2020-05-23] MEDS ORDERED: DEXAMETHASON6 MG PO (16:35)
--- NOTE | 2020-05-23 17:11 | NUR ---
Discharge instructions given. Patient verbalizes understanding of same. Discharged in stable condition via medical transport to [facility] accompanied by staff. All belongings sent with pt.
--- NOTE | 2020-05-23 18:00 | NUR ---
REPORT GIVEN TO [place] [facility] EMERGENCY DEPARTMENT [employer]
== END 2020-05-23 17:11 | DRG 177 ==
LOC: ED 12:58 → ED-I 15:05 → ED 15:19 → ED-I 15:20 → ICU 15:20 → MS2 05-22 13:02
PROVIDERS: Nurse Practitioner; Student in an Organized Health Care Education/Training Program; ADMIT Internal Medicine; ATTEND Internal Medicine
PROC: XW033E5 Introduction of Remdesivir Anti-infective into Peripheral Vein, Percutaneous Approach, New Technology Group 5 (ICD-10-PCS; principal; 2020-05-15)
DX: U07.1 COVID-19 (principal); J12.89 Other viral pneumonia; J96.01 Acute respiratory failure with hypoxia; J44.1 Chronic obstructive pulmonary disease with (acute) exacerbation; J44.0 Chronic obstructive pulmonary disease with (acute) lower respiratory infection; E87.1 Hypo-osmolality and hyponatremia; C85.90 Non-Hodgkin lymphoma, unspecified, unspecified site; E87.6 Hypokalemia; G89.4 Chronic pain syndrome; R32 Unspecified urinary incontinence; F17.200 Nicotine dependence, unspecified, uncomplicated; Z91.19 Patient's noncompliance with other medical treatment and regimen; Z79.891 Long term (current) use of opiate analgesic
CPT/HCPCS: A4627; J1650; J3370